=== PATIENT | female | born 1990 | race Caucasian/White ===

== ENCOUNTER 2019-06-29 17:12 | Emergency (ER) | payer OTHER ==
[~2019-06-29] VITALS: Ht 160 cm; Wt 106.6 kg
[~2019-06-29 17:12] MED LIST: A.E.R PADS1 JAR TOP; APAP500 PO; BACTRIM DS TAB1 EACH PO; BENADRYL25 MG PO; CITRATE OF MAG296 ML PO; DERMOPLAST SPRA56 ML; DOXYCYCLINE 10100 MG PO; HYDROCORTISONE30 G9 RE; HYDROCORTISONE30 G9 RECTAL; IBUPROFEN 600600 M1 PO; KEFLEX500 MG PO; LANOLIN56 GM; LORTAB 7.5/5001 TA3 PO; NAPROSYN500 MG PO; NORCO 5-325 TA1 EACH PO; PERCOCET 5-3251 EACH PO; PRENATAL MULTI1 EAC2; TUCKS MEDICATE1 EAC1; TUMS PO; TYLENOL EX-STR500 M2 PO; ZOFRAN ODT4 MG PO; birth control PO
[2019-06-29 17:28] LABS: URINE BILIRUBIN NEGATIVE (Negative); URINE BLOOD NEGATIVE (Negative); URINE CLARITY CLEAR; URINE COLOR YELLOW; URINE GLUCOSE-RANDOM* NEGATIVE (Negative); URINE KETONES NEGATIVE (Negative); URINE NITRITE-REFLEX NEGATIVE (Negative); URINE PROTEIN (DIPSTICK) TRACE (Negative); URINE UROBILINOGEN 0.2 E.U./dl (0.2-1.0)
[2019-06-29 17:30] LABS: URINE LEUKOCYTES-REFLEX 1+ (Negative)
[2019-06-29 17:42] LABS: CASTS None Seen /LPF (None Seen); CRYSTALS None Seen /LPF (None Seen); SQUAMOUS 4-10 Moderate /LPF (0-3)
[2019-06-29 17:43] LABS: URINE RBC None Seen /HPF (0-2); URINE WBC-REFLEX 0-5 Rare /HPF (0-5)
[2019-06-29 18:03] LABS: ABSOLUTE NEUTROPHILS 5.2 thou/uL (1.4-8.2); BASOPHILS 0.3 % (0.0-2.0); EOSINOPHILS 2.2 % (0.0-3.0); HEMOGLOBIN 12.8 gm/dL (12.0-15.0); LYMPHOCYTES 24.6 % (24.0-44.0); MCH 28.7 pg (26.0-34.0); MCHC 33.6 g/dL (28.0-37.0); MCV 85.2 fL (80.0-100.0); MONOCYTES 7.6 % (1.0-8.0); PLATELET COUNT 307 thou/uL (150-400); POLYS 65.3 % (36.0-66.0); RBC 4.46 mil/uL (4.20-5.00); RDW 13.5 % (10.5-14.5)
[2019-06-29 18:11] LABS: ANION GAP 9 mmol/L (7-16); BUN 15 mg/dL (7-18); CALCIUM 9.2 mg/dL (8.5-10.1); CHLORIDE 104 mmol/L (98-107); CO2 26 mmol/L (21-32); CREATININE 0.8 mg/dL (0.6-1.0); GLUCOSE 92 mg/dL (74-106); POTASSIUM 3.7 mmol/L (3.5-5.1); SODIUM 139 mmol/L (136-145)
[2019-06-29 18:17] LABS: DIRECT BILIRUBIN < 0.1 mg/dL (<0.1-0.3); LIPASE 201 U/L (73-393); SGOT 20 U/L (15-37); SGPT 26 U/L (30-65); TOTAL BILIRUBIN 0.3 mg/dL (<0.1-1.0); TOTAL PROTEIN 8.4 g/dL (6.4-8.2)
[2019-06-29] MEDS ORDERED: PRILOSEC OTC20 MG PO (20:05)
[2019-06-29] MEDS ORDERED: NAPROSYN500 MG PO (20:05)
[2019-06-29] MEDS ORDERED: ONDANSETRON ODT4 MG PO (20:07)
[2019-06-29 20:12] VITALS: BP 110/75
--- NOTE | 2019-06-30 08:30 | EKG ---
[address] [place] [address] ELECTROCARDIOGRAM REPORT Name: LESLIE SMITH Room #: DEP [id number] Admission: 06/29/19 Attend Phys: Discharge: 06/29/19 Date of : 89 Report #: [id number] THIS REPORT FOR: //name// [facility] ED Test Date: 2019-06-29 Test Time: 19:03:55 Pat Name: LESLIE SMITH Department: Room: Gender: F [employer]: [employer] : 1990 Requested By: Asael Seu Order Number: [id number] MD: Gino Boyce Measurements Intervals [place] Rate: 73 P: 22 DC: 169 QRS: 2 QRSD: 115 T: 12 QT: 396 QTc: 437 Interpretive Statements Sinus rhythm Nonspecific T wave abnormality No previous ECG available for comparison Electronically Signed On 06-30-2019 8:30:22 [employer] by Gino Boyce [email or web address] <ELECTRONICALLY SIGNED> By: Gino Boyce MD, [facility] 06/30/19 0830 1903 1903 Gino Boyce MD, FACC /EPI
== END 2019-06-29 20:18 | disposition home or self-care (01) ==
LOC: ER 17:12
PROVIDERS: Emergency Medicine
DX: R10.84 Generalized abdominal pain (principal); Z79.899 Other long term (current) drug therapy; Z98.890 Other specified postprocedural states; Z90.49 Acquired absence of other specified parts of digestive tract